=== PATIENT | female | born 1950 | race Caucasian/White ===

== ENCOUNTER 2018-06-29 16:02 | Inpatient (IN) ==
[2018-06-29] MEDS ORDERED: Ampicillin/Sulbactam 3,000 MG in 0.9 % Sodium Chloride Mini Bag 100 ML IVPB ONE (16:13)
[2018-06-29] MEDS ORDERED: *HR* FentaNYL (PF) 100 MCG/2 ML VIAL IVP ONE (16:18)
--- NOTE | 2018-06-29 16:26 | Emergency Department Note ---
Disposition Clinical Impression: Cat bite of hand Qualifiers: Encounter type: initial encounter Laterality: right Qualified Code(s): S61.451A - Open bite of right hand, initial encounter; W55.01XA - Bitten by cat , initial encounter Cellulitis Qualifiers: Site of cellulitis: extremity Site of cellulitis of extremity: upper extremity Laterality: right Qualified Code(s): L03.113 - Cellulitis of right upper limb Disposition: Admitted As Inpatient Condition: Fair Time of Disposition: 16:28 Animal Bite HPI - General Chief Complaint: ED Extremity Injury, Upper Stated Complaint: Left hand cat scratch Time Seen by Provider: 06/29/18 16:09 Source: patient, family Mode of arrival: ambulatory Limitations: no limitations Nursing Notes Reviewed: Yes Vital Signs Reviewed: Yes - History of Present Illness HPI Narrative: The patient sent back from the orthopedic clinic with request for admission Pt Subjective Complaint: animal bite Onset (ago): hour(s) Animal: cat Description of Animal: household pet Mechanism: bite Bilateral: hand Pain Description: constant Context: unprovoked Associated symptoms: Reports: erythema - Related Data Patient Tetanus UTD: Yes Home Medications Medication Instructions Recorded Confirmed Citalopram [CeleXA] 20 mg PO DAILY 03/06/16 10/01/16 Quetiapine Fumarate [Seroquel] 600 mg PO QPM 03/06/16 10/01/16 Ropinirole HCl [Requip] 2 mg PO DAILY 03/06/16 10/01/16 diazePAM [Valium] 10 mg PO TID PRN 03/06/16 10/01/16 Ergocalciferol (VITAMIN D2) 50,000 unit PO QWEEK 10/01/16 10/01/16 [Vitamin D2] Lisinopril [Zestril] 10 mg PO DAILY 10/01/16 10/01/16 [place]-3/Dha/Epa/Fish Oil [Fish Oil 1,000 mg PO DAILY 10/01/16 10/01/16 1,000 mg Softgel] Venlafaxine [Effexor] 37.5 mg PO DAILY 10/01/16 10/01/16 Vitamin E Acid Succinate [Vitamin 200 unit PO DAILY 10/01/16 10/01/16 E] Previous Rx's Medication Instructions Recorded Clindamycin [Cleocin] 150 mg PO Q6HR #8 capsule 10/01/16 OxyCODONE Immed Rel [Roxicodone 5 5 mg PO Q6HR PRN #30 tablet 10/01/16 MG] Loratadine/Pseudophed (12 HR) 1 each PO BID #20 tab.er.12h 10/28/16 [Claritin D (12HR)] Cyclobenzaprine [Flexeril] 10 mg PO TID #15 tablet 06/20/18 methylPREDNISolone [Medrol] 4 mg PO TAPER #21 tablet 06/20/18 Amoxicillin/Clavulanate [Augmentin] 875 mg PO BID #20 tablet 06/29/18 Allergies Allergy/AdvReac Type Severity Reaction Status Date / Time No Known Allergies Allergy Verified 06/20/18 14:25 All systems ED: reviewed and negative except as stated. Constitutional: Reports: as per HPI Eyes: Reports: as per HPI ENT ED: Reports: as per HPI Cardiovascular: Reports: as per HPI Respiratory: Reports: as per HPI Gastrointestinal: Reports: as per HPI Genitourinary: Reports: as per HPI Musculoskeletal: Reports: other (Left hand pain) Integumentary: Reports: other (cat bite, puncture wound) Neurological: Reports: as per HPI Psychiatric: Reports: as per HPI Endocrine: Reports: as per HPI Hematological/Lymphatic: Reports: as per HPI Allergic/Immunologic: Reports: as per HPI Past Medical History - Past Medical History Source: patient Medical history: Reports: GERD, hypertension, other Surgical history: Reports: cholecystectomy, hysterectomy Psychiatric history: Reports: anxiety, bipolar, depression 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 - Social History Smoking Status: Never smoker Smokeless Tobacco Status: No Alcohol use: Reports: none Drug use: Reports: none Physical Exam - General Limitations: no limitations General appearance: anxious - Head Head exam: atraumatic - Eye Eye exam: Present: normal appearance - ENT ENT exam: normal exam - Neck Neck exam: Present: normal inspection - Chest Chest inspection: Present: normal inspection, symmetric chest wall rise - Respiratory Respiratory exam: Present: normal lung sounds bilaterally - Cardiovascular Cardiovascular exam: Present: regular rate, normal rhythm, normal heart sounds - Expanded Upper Extremity Exam Shoulder exam: Present: normal inspection Arm exam: Present: normal inspection Elbow exam: Present: normal inspection Forearm/Wrist exam: Present: erythema (Erythema tracking along the volar aspect of the left forearm) Hand exam: Present: tenderness, swelling, erythema, other (Multiple puncture wounds to the dorsum of the left hand as well as the hyperthenar eminence of the left hand. Puncture wound to the flexor aspect of the right fourth digit) - Neurological Exam Neurological exam: Present: alert, oriented X3, CN II-XII intact - Psychiatric Psychiatric exam: Present: anxious - Skin Skin exam: Present: warm, dry Course Vital Signs Temperature 98.3 F 06/29/18 16:05 Pulse Rate 84 06/29/18 16:05 Respiratory Rate 16 06/29/18 16:05 Blood Pressure 142/88 06/29/18 16:05 O2 Sat by Pulse Oximetry 98 06/29/18 16:05 Temperature 98.3 F 06/29/18 16:05 Pulse Rate 84 06/29/18 16:05 Respiratory Rate 16 06/29/18 16:05 Blood Pressure 142/88 06/29/18 16:05 O2 Sat by Pulse Oximetry 98 06/29/18 16:05 Oxygen Delivery Oxygen Delivery Room Air Animal Bite - Lab Data Lab results reviewed: Yes I reviewed the patient's lab results. - Radiology Data Radiology results reviewed: Yes I reviewed the patient's radiology results.
[2018-06-29 16:55] LABS: Basophils % 0.5 %; Eosinophils # 0.3 K/mcL (0.0-0.6); Eosinophils % 3.9 %; Hematocrit 39.5 % (35.3-44.9); Hemoglobin 12.9 g/dL (11.5-15.4); Immature Granulocytes % 0.3 % (0-4); Lymphocytes # 1.3 K/mcL (0.6-4.6); Lymphocytes % 16.8 %; Mean Corpuscular HGB Conc 32.7 g/dL (31.6-35.5); Mean Corpuscular Hemoglobin 30.3 pg (28.0-33.3); Mean Corpuscular Volume 92.7 fL (83.0-100.0); Mean Platelet Volume 9.3 fL (9.4-12.4); Monocytes # 0.7 K/mcL (0.0-1.3); Monocytes % 9.4 %; Neutrophils # 5.4 K/mcL (1.6-8.9); Platelet Count 286 K/mcL (140-400); Red Blood Count 4.26 M/mcL (3.82-4.97); Red Cell Distribution Width 13.2 % (11.5-14.5); Segmented Neutrophils % 69.1 %
[2018-06-29 17:09] LABS: Alanine Aminotransferase 40 Units/L (7-52); Albumin 4.5 g/dL (3.5-5.7); Albumin/Globulin Ratio 1.4 (1.1-2.2); Alkaline Phosphatase 129 Units/L (34-104); Aspartate Amino Transferase 49 Units/L (13-39); BUN/Creatinine Ratio 15 (6-26); Bilirubin,Total 0.5 mg/dL (0.3-1.0); Blood Urea Nitrogen 14 mg/dL (8-23); Calcium 9.7 mg/dL (8.6-10.3); Carbon Dioxide 29 mEq/L (23-29); Chloride 101 mEq/L (98-107); Globulin 3.2 g/dL (2.4-3.5); Glucose 104 mg/dL (70-105); Osmolality,Calculated 285 (280-300); Potassium 4.1 mEq/L (3.5-5.1); Sodium 137 mEq/L (136-145); Total Protein 7.7 g/dL (6.4-8.9); eGFR For Non-African Americans 59 (> 60)
[2018-06-29] MEDS ORDERED: Naloxone 0.4 MG/ML INJ IVP PRN (17:17)
[2018-06-29] MEDS ORDERED: Acetaminophen 325 MG TABLET PO PRN (17:17)
[2018-06-29] MEDS ORDERED: *HR* OxyCODONE Immed Rel 5 MG TABLET PO PRN (17:17)
--- NOTE | 2018-06-29 17:38 | Internal Med History&Physical ---
Date of Encounter: 06/29/18 Time of Encounter: 17:20 Internal Medicine - H&P: HPI Chief complaint: cat bite, left hand pain and swelling Admitted From: Home History of present illness: Ms. Montelongo is a 67 year old female with past medical history of hypertension, GERD, anxiety, presented to the ED after a cat bite to both hands last night. It was a domestic, vaccinated cat of her own which bit her when she was trying to get him off the couch. Shortly after by, she developed intense pain and swelling especially on the left-hand associated with streaks of red spots noted on her forearm. Endorses subjective fever/chills but no nausea/vomiting. Denies any chest pain, short of breath, or other cardiopulmonary symptoms. No GI / symptoms. She was initially seen in the ED, received tetanus shot, and was sent to the orthopedic clinic with a prescription of Augmentin but was asked to return to the ED by Dr. Horner. In the ED, she was afebrile and hemodynamically stable. CBC and BMP were unremarkable. Hand XR showed no acute osseous abnormality but suggested a possibility of small retained metallic foreign body projecting over the soft tissue near the fifth metacarpal head. She was started on IV Unasyn and admitted for further management. Past Med Surg Social Fam HX - Past Medical History Attestation: Yes The following information was validated with the patient. Medical history: GERD, hypertension, other Additional medical history: diverticulitis, Alcoholism, depression, anxiety, gallstones, venous insufficiency, varicose veins, insomnia Psychiatric history: anxiety, bipolar, depression - Past Surgical History Surgical History: cholecystectomy, hysterectomy Additional surgical history: phlebectomy, Right wrist open reduction internal fixation of distal radius - Social History Smoking Status: Never smoker Smokeless Tobacco Status: No Alcohol use: none Drug use: none Internal Medicine - H&P: Meds [facility]-3/Dha/Epa/Fish Oil [Fish Oil 1,000 mg Softgel] 1,000 mg PO DAILY 10/01/16 [History] Vitamin E Acid Succinate [Vitamin E] 200 unit PO DAILY 10/01/16 [History] Ergocalciferol (VITAMIN D2) [Vitamin D2] 2,000 unit PO DAILY 06/29/18 [History] Lisinopril-HCTZ 20-12.5 [Prinzide 20-12.5] 1 tab PO DAILY 06/29/18 [History] Omeprazole [PriLOSEC] 20 mg PO DAILY 06/29/18 [History] Quetiapine Fumarate [Quetiapine Fumarate] 400 mg PO DAILY 06/29/18 [History] Simvastatin [Zocor] 40 mg PO DAILY 06/29/18 [History] Venlafaxine HCl [Venlafaxine HCl ER] 150 mg PO DAILY 06/29/18 [History] clonazePAM [Clonazepam] 1 mg PO TID 06/29/18 [History] 3 Allergy/AdvReac Type Severity Reaction Status Date / Time No Known Allergies Allergy Verified 06/20/18 14:25 All Systems PM: A 10-system review of systems was performed and is negative for pertinent findings except as documented above in the HPI. - Constitutional Vitals: Temp Pulse Resp BP Pulse Ox 98.3 F 84 16 142/88 98 06/29/18 16:05 06/29/18 16:05 06/29/18 16:05 06/29/18 16:05 06/29/18 16:05 Exam: General: Alert and oriented, not in acute distress. HEENT:EOM, pupils equal, round and reactive. Cardiovascular:Normal S1 & S2, No JVD. Pulse regular. Lungs: clear to auscultation, no wheezes/rales Abdomen:Soft, non-tender, no rigidity. Extremities: Dorsum of left hand with 4 puncture wounds associated with surround edema and erythema. Tender to touch. Also has streaks of redness along the medial aspect of L forearm. Also has a puncture wound over palmar aspect of R 4th digit associated with localized swelling. None of the wounds show drainage. Still able to make a fist. Neurological:Normal cognition and motor skills. Non-focal Skin:Normal color, no rash, no lesions. Pulses:Carotid and radial pulses normal +2. Rest of the physical exam is non contributory Internal Med - H&P Results - Labs CBC & Chem 7: 06/29/18 16:13 06/29/18 16:13 Labs: Short CBC 06/29/18 Range/Units 16:13 WBC 7.7 (4.3-11.1) K/mcL Hgb 12.9 (11.5-15.4) g/dL Hct 39.5 (35.3-44.9) % Plt Count 286 (140-400) K/mcL Neutrophils # 5.4 (1.6-8.9) K/mcL BMP 06/29/18 16:13 Sodium 137 Potassium 4.1 Chloride 101 Carbon Dioxide 29 BUN 14 Creatinine 0.94 Glucose 104 Calcium 9.7 Liver Function 06/29/18 Range/Units 16:13 Total Bilirubin 0.5 (0.3-1.0) mg/dL AST 49 H (13-39) Units/L ALT 40 (7-52) Units/L Alkaline Phosphatase 129 H (34-104) Units/L Albumin 4.5 (3.5-5.7) g/dL - Impressions ITS Impressions Hand X-Ray 06/29/18 16:13 IMPRESSION: 1. No acute osseous abnormality. 2. Small retained metallic foreign body projects over the soft tissues near the 5th metacarpal head. D/ / 06/29/2018 16:38:27 Emmanuel Anderson MD / [email or web address] Interpreting Provider: Emmanuel Anderson MD - Assessment and plan (1) Cat bite of hand Current Visit: Yes Status: Acute Assessment and plan: Concern for cellulitis + possible tenosynovitis and lymphangitis XR finding as above analgesics wound care blood cultures x 2 sets start IV unasyn will monitor her overnight on IV abx, may require MRI Qualifiers: Encounter type: initial encounter Laterality: left Qualified Code(s): S61.452A - Open bite of left hand, initial encounter; W55.01XA - Bitten by cat, initial encounter (2) Cellulitis Current Visit: Yes Status: Acute Assessment and plan: As above Qualifiers: Site of cellulitis: extremity Site of cellulitis of extremity: upper extremity Laterality: left Qualified Code(s): L03.114 - Cellulitis of left upper limb (3) HTN (hypertension) Current Visit: Yes Status: Acute Assessment and plan: Resume home meds Qualifiers: Hypertension type: essential hypertension Qualified Code(s): I10 - Essential (primary) hypertension (4) Anxiety Current Visit: Yes Status: Acute Assessment and plan: Continue Klonopin at home dose (5) DVT prophylaxis Current Visit: Yes Status: Acute Assessment and plan: SCD - Time Spent With Patient Total time spent is greater than 50% in coordination of care (as documented) at patient's floor/unit and/or counseling patient:
--- NOTE | 2018-06-29 19:39 | Orthopedic Consult Note ---
Date of Encounter: 06/29/18 Time of Encounter: 17:30 Assessment and Plan (1) Cat bite of hand Current Visit: Yes Status: Acute I did discuss the diagnosis in detail with the patient. She does have generalized swelling and erythema related to cellulitis from the bite of a cat. This did occur about 12 hours ago. I do not appreciate any fluctuance but the edema is impressive and I agree with admission and IV antibiotics, particularly Unasyn and close observation overnight. I will see the patient again tomorrow and given her clinical scenario, particularly if she worsens, we will consider ordering an MRI of the left hand to evaluate for drainable abscess. Until then I recommend elevation, anti-inflammatories is able per the hospitalist, ice, and IV antibiotics. Qualifiers: Encounter type: initial encounter Laterality: left Qualified Code(s): S61.452A - Open bite of left hand, initial encounter; W55.01XA - Bitten by cat, initial encounter History of Present Illness HPI: Ms. Montelongo is a 67 year old female who sustained an injury from a cat bite yesterday to her left hand. This was her own vaccinated domestic cat who she was trying to help after got caught in a chair. The patient indicates that the cat bit and clawed at her left hand. Over the night and through the morning she developed pain and swelling and presented to the emergency department earlier today where she was felt to have cellulitis and was discharged on Augmentin and followed up with Dr. Horner in the office who referred her back to the emergency department due to concerns for lymphangitis, patient age, and general frailty. The patient was subsequently admitted to the hospitalist and was placed on Unasyn. I did evaluate the patient in consultation in the emergency department where she was complaining of isolated pain to the left hand region mainly along the dorsum but also ulnar proximal aspect of the hand which is sharp and achy in nature and worse with movements. She denies numbness , tingling, or any other associated signs or symptoms or modifying factors. She currently denies any feelings of illness, but does have some nausea. Past Med Surg Social Fam HX - Past Medical History Medical history: GERD, hypertension, other Additional medical history: diverticulitis, Alcoholism, gallstones, venous insufficiency, varicose veins, insomnia Psychiatric history: anxiety, bipolar, depression - Past Surgical History Surgical History: cholecystectomy, hysterectomy Additional surgical history: phlebectomy, Right wrist open reduction internal fixation of distal radius - Social History Smoking Status: Never smoker Smokeless Tobacco Status: No Alcohol use: none Drug use: none Medications and Allergies [place]-3/Dha/Epa/Fish Oil [Fish Oil 1,000 mg Softgel] 1,000 mg PO DAILY 10/01/16 [History] Vitamin E Acid Succinate [Vitamin E] 200 unit PO DAILY 10/01/16 [History] Ergocalciferol (VITAMIN D2) [Vitamin D2] 2,000 unit PO DAILY 06/29/18 [History] Lisinopril-HCTZ 20-12.5 [Prinzide 20-12.5] 1 tab PO DAILY 06/29/18 [History] Omeprazole [PriLOSEC] 20 mg PO DAILY 06/29/18 [History] Quetiapine Fumarate [Quetiapine Fumarate] 400 mg PO DAILY 06/29/18 [History] Simvastatin [Zocor] 40 mg PO DAILY 06/29/18 [History] Venlafaxine HCl [Venlafaxine HCl ER] 150 mg PO DAILY 06/29/18 [History] clonazePAM [Clonazepam] 1 mg PO TID 06/29/18 [History] 3 Allergy/AdvReac Type Severity Reaction Status Date / Time No Known Allergies Allergy Verified 06/20/18 14:25 All Systems Reviewed: Constitutional and musculoskeletal systems were reviewed and are negative unless otherwise stated in history of present illness. Physical Exam - Constitutional Vitals: Temp Pulse Resp BP Pulse Ox 98.3 F 84 16 142/88 98 06/29/18 19:04 06/29/18 19:04 06/29/18 19:04 06/29/18 19:04 06/29/18 19:04 CONSTITUTIONAL -Vitals reviewed -The patient is well developed, well nourished, well groomed PSYCHIATRIC -Fully alert and oriented -Pleasant mood LEFT UPPER EXTREMITY Mild generalized swelling to the hand with edema, particularly along the ulnar proximal aspect of the hand with small scattered puncture casillas from teeth, the largest of which is at the proximal ulnar aspect of the hyperthenar eminence with mild associated erythema and lymphangitis with streaking going up to the medial elbow area. Diffuse tenderness along the ulnar aspect of the hand and over the hyperthenar eminence. No pain with passive motion of the digits and wrist. She can grossly flex and extend the digits was some limitation due to pain and swelling. No pain with passive motion of the shoulder or the elbow. The fingertips are all grossly sensate and well-perfused, and the radial artery pulse is 2+. Diagnostic Imaging: I did personally review and interpret x-rays of the left hand which show mild soft tissue swelling without any bony changes. Small retained metallic fragment as described in the radiologist's report, unrelated. Results - Labs Result Diagrams: 06/29/18 16:13 06/29/18 16:13 Labs: Abnormal lab results MPV 9.3 fL (9.4-12.4) L 06/29/18 16:13 Est GFR (Non-Af Amer) 59 (> 60) L 06/29/18 16:13 AST 49 Units/L (13-39) H 06/29/18 16:13 Alkaline Phosphatase 129 Units/L (34-104) H 06/29/18 16:13 All other labs normal. Consult Discharge Plan - Plan Referrals: Marito Mueller MD [Primary Care Provider] -
[2018-06-29] MEDS: clonazePAM 1 MG TABLET PO SCH (21:25)
[2018-06-30] MEDS: Ampicillin/Sulbactam 3,000 MG in 0.9 % Sodium Chloride Mini Bag 100 ML IVPB SCH ×4 (00:20→17:21)
[2018-06-30] MEDS: *HR* HYDROcodone/Acet 5/325 mg TABLET PO PRN ×2 (00:20→06:34)
[2018-06-30 05:59] LABS: Basophils % 0.5 %; Eosinophils # 0.6 K/mcL (0.0-0.6); Eosinophils % 10.3 %; Hematocrit 35.7 % (35.3-44.9); Hemoglobin 11.5 g/dL (11.5-15.4); Immature Granulocytes % 0.3 % (0-4); Lymphocytes # 1.5 K/mcL (0.6-4.6); Lymphocytes % 24.9 %; Mean Corpuscular HGB Conc 32.2 g/dL (31.6-35.5); Mean Corpuscular Volume 93.2 fL (83.0-100.0); Mean Platelet Volume 9.1 fL (9.4-12.4); Monocytes # 0.8 K/mcL (0.0-1.3); Monocytes % 12.3 %; Neutrophils # 3.2 K/mcL (1.6-8.9); Platelet Count 247 K/mcL (140-400); Red Blood Count 3.83 M/mcL (3.82-4.97); Red Cell Distribution Width 13.2 % (11.5-14.5); Segmented Neutrophils % 51.7 %
[2018-06-30 06:24] LABS: BUN/Creatinine Ratio 15 (6-26); Blood Urea Nitrogen 16 mg/dL (8-23); Carbon Dioxide 27 mEq/L (23-29); Chloride 101 mEq/L (98-107); Glucose 123 mg/dL (70-105); Osmolality,Calculated 285 (280-300); Potassium 3.4 mEq/L (3.5-5.1); Sodium 136 mEq/L (136-145); eGFR For Non-African Americans 50 (> 60)
[2018-06-30] MEDS ORDERED: 0.9 % Sodium Chloride w KCl 40 MEQ/1,000 ML MLS IVC SCH (07:30)
[2018-06-30] MEDS ORDERED: Gadolinium Contrast Agent (WT Based) IV PRN (07:37)
--- NOTE | 2018-06-30 07:41 | Orthopedics Progress Note ---
Date of Encounter: 06/30/18 Time of Encounter: 07:39 - Assessment and Plan (1) Cat bite of hand Current Visit: Yes Status: Acute Qualifiers: Encounter type: initial encounter Laterality: left Qualified Code(s): S61.452A - Open bite of left hand, initial encounter; W55.01XA - Bitten by cat, initial encounter Subjective Interval history: S: Resting comfortably in bed She was able to get sleep last night Persistent pain to the left hand, particularly the dorsum and hyperthenar eminence radiating proximally O: Afebrile on the vital signs are stable Persistent swelling and redness to the dorsum of the hand and hyperthenar eminence Significant tenderness to palpation in these areas She is able to grossly flex and extend the digits with limitation due to pain The fingertips are all grossly sensate and well-perfused, and the radial artery pulse is 2+. A: Cellulitis of the left hand after being bit by a cat P: My recommendation is to continue IV antibiotics per the primary team I did order an ESR and CRP I ordered an MRI with contrast to evaluate for underlying abscess I recommend ice, elevation, and anti-inflammatories if able to be tolerated, either Toradol or ibuprofen Objective Vital signs: Vital Signs Temp Pulse Resp BP Pulse Ox 06/30/18 03:30 98.3 F 90 16 103/64 94 06/29/18 21:15 98.7 F 94 17 161/93 96 06/29/18 19:34 86 15 120/89 97 06/29/18 19:04 98.3 F 84 16 142/88 98 Intake and Output 06/29/18 06/29/18 06/30/18 15:59 23:59 07:59 Intake Total 0 / 100 550 / 550 Output Total 0 / 0 Balance 0 / 100 550 / 550 Intake: IV Fluids 100 / 100 Unasyn 3,000 MG In 0.9 % Sodium 100 / 100 Chloride (Mini-Bag +) 100 ML @ 200 mls/hr IVPB Q6HR SRINIVAS Rx#: [id number] Oral 0 / 0 450 / 450 Output: Urine 0 / 0 Other: Meal sandwich Percent of Meal Consumed 100% # Voids 1 Weight 73.936 kg 74 kg Patient Weight 06/30/18 23:59 Weight 74 kg - Labs CBC & BMP: 06/30/18 05:27 06/30/18 05:27 Labs: Abnormal lab results MPV 9.1 fL (9.4-12.4) L 06/30/18 05:27 Potassium 3.4 mEq/L (3.5-5.1) L 06/30/18 05:27 Est GFR (Non-Af Amer) 50 (> 60) L 06/30/18 05:27 Glucose 123 mg/dL (70-105) H 06/30/18 05:27 AST 49 Units/L (13-39) H 06/29/18 16:13 Alkaline Phosphatase 129 Units/L (34-104) H 06/29/18 16:13 Consult Discharge Plan - Plan Referrals: Marito Mueller MD [Primary Care Provider] -
[2018-06-30] MEDS: clonazePAM 1 MG TABLET PO SCH ×3 (08:02→20:57)
[2018-06-30] MEDS: Cholecalciferol (D-3) 1,000 UNIT TABLET PO SCH (08:02)
[2018-06-30] MEDS: Lisinopril-HCTZ 20-12.5mg TABLET PO SCH (08:02)
[2018-06-30] MEDS: Venlafaxine XR (24 HR) 150 MG CAP.ER.24H PO SCH (08:02)
[2018-06-30] MEDS ORDERED: QUETIAPINE FUMARATE 400 MG PO SCH (09:00)
[2018-06-30 10:45] LABS: C-Reactive Protein 56 mg/L (Less than 10)
--- NOTE | 2018-06-30 11:41 | Internal Med Progress Note ---
Hospitalist Progress Note - Encounter Date of Encounter: 06/30/18 Time of Encounter: 09:20 - Subjective Interval History: No acute events overnight. Left hand swelling and pain is about the same as yesterday but the redness along the left forearm has decreased. No fever/ chills or nausea/vomiting. - Exam Vitals: Temp Pulse Resp BP Pulse Ox 97.8 F 74 15 90/52 92 06/30/18 07:41 06/30/18 07:41 06/30/18 07:41 06/30/18 07:41 06/30/18 08:14 Exam: General: Alert and oriented, not in acute distress. Cardiovascular:Normal S1 & S2, No JVD. Pulse regular. Lungs: clear to auscultation, no wheezes/rales Abdomen:Soft, non-tender, no rigidity. Extremities: Dorsum of left hand with 4 puncture wounds associated with surrounding edema and erythema which appears stable. Tender and warm to touch. Streaks of redness along the medial aspect of L forearm has decreased Puncture wound over palmar aspect of R 4th digit associated with localized swelling. No drainage from any of the wounds Pulses:Carotid and radial pulses normal +2. - Assessment and Plan (1) Cat bite of hand Current Visit: Yes Status: Acute Assessment and Plan: Concern for cellulitis + possible tenosynovitis/lymphangitis ESR, CRP elevated analgesics wound care follow up on blood cultures D2 IV unasyn appreciate ortho evaluation, for MRI today (2) Cellulitis Current Visit: Yes Status: Acute Assessment and Plan: As above (3) HTN (hypertension) Current Visit: Yes Status: Acute Assessment and Plan: Resume home meds (4) Anxiety Current Visit: Yes Status: Acute Assessment and Plan: Continue Klonopin at home dose (5) DVT prophylaxis Current Visit: Yes Status: Acute Assessment and Plan: SCD - Time Spent with Patient Total time spent is greater than 50% in coordination of care (as documented) at patient's floor/unit and/or counseling patient: Plan of Care Discussed with: patient Internal Medicine: Result - Labs CBC & Chem 7: 06/30/18 05:27 06/30/18 05:27 Labs: Short CBC 06/30/18 Range/Units 05:27 WBC 6.2 (4.3-11.1) K/mcL Hgb 11.5 (11.5-15.4) g/dL Hct 35.7 (35.3-44.9) % Plt Count 247 (140-400) K/mcL Neutrophils # 3.2 (1.6-8.9) K/mcL BMP 06/30/18 05:27 Sodium 136 Potassium 3.4 L Chloride 101 Carbon Dioxide 27 BUN 16 Creatinine 1.10 Glucose 123 H Calcium 9.0 Consult Discharge Plan - Plan Referrals: Marito Mueller MD [Primary Care Provider] - (1) Cat bite of hand Qualifiers: Encounter type: initial encounter Laterality: left Qualified Code(s): S61.452A - Open bite of left hand, initial encounter; W55.01XA - Bitten by cat, initial encounter (2) Cellulitis Qualifiers: Site of cellulitis: extremity Site of cellulitis of extremity: upper extremity Laterality: left Qualified Code(s): L03.114 - Cellulitis of left upper limb (3) HTN (hypertension) Qualifiers: Hypertension type: essential hypertension Qualified Code(s): I10 - Essential (primary) hypertension
[2018-06-30] MEDS: Ketorolac 15 MG/ML VIAL IVP PRN ×2 (12:34→18:17)
--- NOTE | 2018-06-30 17:45 | Orthopedics Progress Note ---
Date of Encounter: 06/30/18 Time of Encounter: 17:43 - Assessment and Plan (1) Cat bite of hand Current Visit: Yes Status: Acute Qualifiers: Encounter type: initial encounter Laterality: left Qualified Code(s): S61.452A - Open bite of left hand, initial encounter; W55.01XA - Bitten by cat, initial encounter Subjective Interval history: S: Resting comfortably in bed Pain improving to the left hand. O: Afebrile on the vital signs are stable Improved redness to the dorsum of the hand and hyperthenar eminence Edema less intense in the left hand Moderate tenderness to palpation in these areas She is able to grossly flex and extend the digits with limitation due to pain The fingertips are all grossly sensate and well-perfused, and the radial artery pulse is 2+. MRI negative for drainable abscess A: Cellulitis of the left hand after being bit by a cat P: My recommendation is to continue IV antibiotics per the primary team I recommend ice, elevation, and anti-inflammatories if able to be tolerated, either Toradol or ibuprofen Objective Vital signs: Vital Signs Temp Pulse Resp BP Pulse Ox 06/30/18 12:32 98.2 F 87 15 168/104 98 06/30/18 08:14 92 06/30/18 07:41 97.8 F 74 15 90/52 92 06/30/18 03:30 98.3 F 90 16 103/64 94 06/29/18 21:15 98.7 F 94 17 161/93 96 06/29/18 19:34 86 15 120/89 97 06/29/18 19:04 98.3 F 84 16 142/88 98 Intake and Output 06/30/18 06/30/18 06/30/18 07:59 15:59 23:59 Intake Total 650 / 650 580 / 580 Balance 650 / 650 580 / 580 Intake: IV Fluids 200 / 200 100 / 100 Unasyn 3,000 MG In 0.9 % Sodium 200 / 200 100 / 100 Chloride (Mini-Bag +) 100 ML @ 200 mls/hr IVPB Q6HR [facility] Rx#: [id number] Oral 450 / 450 480 / 480 Other: Meal sandwich Lunch Percent of Meal Consumed 100% 75% # Voids 1 Weight 74 kg Patient Weight 06/30/18 23:59 Weight 74 kg - Labs CBC & BMP: 06/30/18 05:27 06/30/18 05:27 Labs: Abnormal lab results MPV 9.1 fL (9.4-12.4) L 06/30/18 05:27 ESR 37 mm/hr (0-15) H 06/30/18 05:27 Potassium 3.4 mEq/L (3.5-5.1) L 06/30/18 05:27 Est GFR (Non-Af Amer) 50 (> 60) L 06/30/18 05:27 Glucose 123 mg/dL (70-105) H 06/30/18 05:27 AST 49 Units/L (13-39) H 06/29/18 16:13 Alkaline Phosphatase 129 Units/L (34-104) H 06/29/18 16:13 C-Reactive Protein 56 mg/L (Less than 10) H 06/30/18 05:27 Consult Discharge Plan - Plan Referrals: Marito Mueller MD [Primary Care Provider] -
[2018-06-30] MEDS: OXYCODONE Oral CONC 10 MG/0.5 ML ORAL.SYG SL PRN (21:09)
[2018-07-01] MEDS: Ampicillin/Sulbactam 3,000 MG in 0.9 % Sodium Chloride Mini Bag 100 ML IVPB SCH ×4 (00:26→17:22)
[2018-07-01 04:14] LABS: Basophils % 0.4 %; Eosinophils # 0.6 K/mcL (0.0-0.6); Eosinophils % 7.2 %; Hematocrit 37.5 % (35.3-44.9); Hemoglobin 11.6 g/dL (11.5-15.4); Immature Granulocytes % 0.4 % (0-4); Lymphocytes # 1.2 K/mcL (0.6-4.6); Mean Corpuscular HGB Conc 30.9 g/dL (31.6-35.5); Mean Corpuscular Hemoglobin 29.7 pg (28.0-33.3); Mean Corpuscular Volume 96.2 fL (83.0-100.0); Mean Platelet Volume 9.1 fL (9.4-12.4); Monocytes # 0.7 K/mcL (0.0-1.3); Monocytes % 8.3 %; Platelet Count 243 K/mcL (140-400); Red Cell Distribution Width 13.2 % (11.5-14.5); Segmented Neutrophils % 69.7 %
[2018-07-01 04:37] LABS: Calcium 8.9 mg/dL (8.6-10.3); Potassium 4.1 mEq/L (3.5-5.1)
--- NOTE | 2018-07-01 07:44 | Orthopedics Progress Note ---
Date of Encounter: 07/01/18 Time of Encounter: 07:41 - Assessment and Plan (1) Cat bite of hand Current Visit: Yes Status: Acute Qualifiers: Encounter type: initial encounter Laterality: left Qualified Code(s): S61.452A - Open bite of left hand, initial encounter; W55.01XA - Bitten by cat, initial encounter Subjective Interval history: S: Resting comfortably in bed Pain continues to improve to the left hand. O: Afebrile on the vital signs are stable Redness almost completely resolved to the dorsum of the hand and hyperthenar eminence Edema improved to the left hand Mild overall swelling Small area over the hypothenar eminence which expresses slight drainage which can be expressed Moderate tenderness to palpation in these areas She is able to grossly flex and extend the digits with limitation due to pain The fingertips are all grossly sensate and well-perfused, and the radial artery pulse is 2+. A: Improving cellulitis of the left hand after being bit by a cat P: My recommendation is to continue IV antibiotics per the primary team at least another 24 hours I recommend ice, elevation, and anti-inflammatories if able to be tolerated, either Toradol or ibuprofen We will continue to follow clinically with you Objective Vital signs: Vital Signs Temp Pulse Resp BP Pulse Ox 07/01/18 06:26 99.7 F H 104 16 104/63 92 07/01/18 03:00 99.2 F 98 16 106/65 90 06/30/18 19:09 98.4 F 100 16 115/71 94 06/30/18 12:32 98.2 F 87 15 168/104 98 06/30/18 08:14 92 Intake and Output 06/30/18 06/30/18 07/01/18 15:59 23:59 07:59 Intake Total 580 / 580 340 / 340 340 / 340 Output Total 0 / 0 Balance 580 / 580 340 / 340 340 / 340 Intake: IV Fluids 100 / 100 100 / 100 100 / 100 Unasyn 3,000 MG In 0.9 % Sodium 100 / 100 100 / 100 100 / 100 Chloride (Mini-Bag +) 100 ML @ 200 mls/hr IVPB Q6HR [facility] Rx#: [id number] Oral 480 / 480 240 / 240 240 / 240 Output: Urine 0 / 0 Other: Meal Lunch Dinner Percent of Meal Consumed 75% 80% # Voids 1 # Bowel Movements 0 - Labs CBC & BMP: 07/01/18 03:46 07/01/18 03:46 Labs: Abnormal lab results MCHC 30.9 g/dL (31.6-35.5) L 07/01/18 03:46 MPV 9.1 fL (9.4-12.4) L 07/01/18 03:46 ESR 37 mm/hr (0-15) H 06/30/18 05:27 Chloride 108 mEq/L (98-107) H 07/01/18 03:46 BUN 25 mg/dL (8-23) H 07/01/18 03:46 Est GFR ( Amer) 59 (> 60) L 07/01/18 03:46 Est GFR (Non-Af Amer) 49 (> 60) L 07/01/18 03:46 Glucose 115 mg/dL (70-105) H 07/01/18 03:46 AST 49 Units/L (13-39) H 06/29/18 16:13 Alkaline Phosphatase 129 Units/L (34-104) H 06/29/18 16:13 C-Reactive Protein 56 mg/L (Less than 10) H 06/30/18 05:27 Consult Discharge Plan - Plan Referrals: Marito Mueller MD [Primary Care Provider] -
[2018-07-01] MEDS: Lisinopril-HCTZ 20-12.5mg TABLET PO SCH (08:29)
[2018-07-01] MEDS: Cholecalciferol (D-3) 1,000 UNIT TABLET PO SCH (08:29)
[2018-07-01] MEDS: Venlafaxine XR (24 HR) 150 MG CAP.ER.24H PO SCH (08:29)
[2018-07-01] MEDS: Ketorolac 15 MG/ML VIAL IVP PRN (08:29)
[2018-07-01] MEDS: clonazePAM 1 MG TABLET PO SCH ×3 (08:29→20:13)
--- NOTE | 2018-07-01 08:45 | Internal Med Progress Note ---
Hospitalist Progress Note - Encounter Date of Encounter: 07/01/18 Time of Encounter: 08:45 - Exam Vitals: Temp Pulse Resp BP Pulse Ox 99.7 F H 104 16 104/63 92 07/01/18 06:26 07/01/18 06:26 07/01/18 06:26 07/01/18 06:26 07/01/18 06:26 Exam: General: Alert and oriented, not in acute distress. Cardiovascular:Normal S1 & S2, No JVD. Pulse regular. Lungs: clear to auscultation, no wheezes/rales Abdomen:Soft, non-tender, no rigidity. Extremities: Dorsum of left hand with 4 puncture wounds associated with surrounding edema and erythema which appears stable. Tender and warm to touch. Streaks of redness along the medial aspect of L forearm has decreased Puncture wound over palmar aspect of R 4th digit associated with localized swelling. No drainage from any of the wounds Pulses:Carotid and radial pulses normal +2. - Assessment and Plan (1) Cat bite of hand Current Visit: Yes Status: Acute Assessment and Plan: Concern for cellulitis + possible tenosynovitis/lymphangitis ESR, CRP elevated analgesics wound care. follow up on blood cultures Continue IV unasyn appreciate ortho evaluation, MRI showed extensive cellulitis Continue IV antibiotics (2) Cellulitis Current Visit: Yes Status: Acute Assessment and Plan: As above (3) HTN (hypertension) Current Visit: Yes Status: Acute Assessment and Plan: Resume home meds (4) Anxiety Current Visit: Yes Status: Acute Assessment and Plan: Continue Klonopin at home dose (5) DVT prophylaxis Current Visit: Yes Status: Acute Assessment and Plan: SCD (6) Headache Current Visit: Yes Status: Acute Assessment and Plan: Pt notes severe right sided headache likely consistent with migraine. Also endorses fall and head trauma about a month ago Obtain CT head and C spine to r/o any intracranial pathology. Start on fioricet PRN - Time Spent with Patient Total time spent is greater than 50% in coordination of care (as documented) at patient's floor/unit and/or counseling patient: Internal Medicine: Result - Labs CBC & Chem 7: 07/01/18 03:46 07/01/18 03:46 Labs: Short CBC 07/01/18 Range/Units 03:46 WBC 8.6 (4.3-11.1) K/mcL Hgb 11.6 (11.5-15.4) g/dL Hct 37.5 (35.3-44.9) % Plt Count 243 (140-400) K/mcL Neutrophils # 6.0 (1.6-8.9) K/mcL BMP 07/01/18 03:46 Sodium 142 Potassium 4.1 Chloride 108 H Carbon Dioxide 29 BUN 25 H Creatinine 1.12 Glucose 115 H Calcium 8.9 - Impressions Impressions Hand MRI 06/30/18 07:37 IMPRESSION: 1. Extensive soft tissue edema with associated postcontrast enhancement most compatible with cellulitis. No organized drainable fluid collection identified to suggest abscess. No acute fracture identified. 2. No tenosynovitis identified. 3. No acute osseous abnormality. 4. [id number] osteoarthritis. D/ / Michoacano Jimenez MD / Michoacano Jimenez MD Interpreting Provider: Michoacano Jimenez MD Consult Discharge Plan - Plan Referrals: Marito Mueller MD [Primary Care Provider] - (1) Cat bite of hand Qualifiers: Encounter type: initial encounter Laterality: left Qualified Code(s): S61.452A - Open bite of left hand, initial encounter; W55.01XA - Bitten by cat, initial encounter (2) Cellulitis Qualifiers: Site of cellulitis: extremity Site of cellulitis of extremity: upper extremity Laterality: left Qualified Code(s): L03.114 - Cellulitis of left upper limb (3) HTN (hypertension) Qualifiers: Hypertension type: essential hypertension Qualified Code(s): I10 - Essential (primary) hypertension
[2018-07-01] MEDS: Acetaminophen/Butalbital/CaffeineTABLET PO PRN ×2 (11:46→17:57)
[2018-07-01] MEDS: OXYCODONE Oral CONC 10 MG/0.5 ML ORAL.SYG SL PRN (20:17)
[2018-07-02] MEDS: Ampicillin/Sulbactam 3,000 MG in 0.9 % Sodium Chloride Mini Bag 100 ML IVPB SCH ×3 (00:44→09:05)
[2018-07-02] MEDS ORDERED: 0.9 % Sodium Chloride Mini Bag 100 ML ONE (06:26)
--- NOTE | 2018-07-02 08:18 | Internal Med Progress Note ---
Hospitalist Progress Note - Encounter Date of Encounter: 07/02/18 Time of Encounter: 08:15 - Exam Vitals: Temp Pulse Resp BP Pulse Ox 99.3 F 88 16 107/68 91 07/02/18 05:38 07/02/18 05:38 07/02/18 05:38 07/02/18 05:38 07/02/18 05:38 Exam: General: Alert and oriented, not in acute distress. Cardiovascular:Normal S1 & S2, No JVD. Pulse regular. Lungs: clear to auscultation, no wheezes/rales Abdomen:Soft, non-tender, no rigidity. Extremities: Dorsum of left hand with 4 puncture wounds associated with surrounding edema and erythema which appears stable. Tender and warm to touch. Streaks of redness along the medial aspect of L forearm has decreased Puncture wound over palmar aspect of R 4th digit associated with localized swelling. No drainage from any of the wounds Pulses:Carotid and radial pulses normal +2. - Assessment and Plan (1) Cat bite of hand Current Visit: Yes Status: Acute Assessment and Plan: Concern for cellulitis + possible tenosynovitis/lymphangitis ESR, CRP elevated analgesics wound care. follow up on blood cultures appreciate ortho evaluation, MRI showed extensive cellulitis Cellulitis improved. Will transition to po augmentin (2) Cellulitis Current Visit: Yes Status: Acute Assessment and Plan: As above (3) HTN (hypertension) Current Visit: Yes Status: Acute Assessment and Plan: Resume home meds (4) Anxiety Current Visit: Yes Status: Acute Assessment and Plan: Continue Klonopin at home dose (5) Headache Current Visit: Yes Status: Acute Assessment and Plan: Pt notes severe right sided headache likely consistent with migraine. Also endorses fall and head trauma about a month ago CT head and CT spine negative. Start on fioricet PRN (6) Diarrhea Current Visit: Yes Status: Acute Assessment and Plan: r/o c diff due to IV unasyn. Obtain stool studies (7) DVT prophylaxis Current Visit: Yes Status: Acute Assessment and Plan: SCD - Time Spent with Patient Total time spent is greater than 50% in coordination of care (as documented) at patient's floor/unit and/or counseling patient: Internal Medicine: Result - Labs CBC & Chem 7: 07/01/18 03:46 07/01/18 03:46 - Impressions Impressions Cervical Spine CT 07/01/18 10:00 IMPRESSION: No acute abnormality of the cervical spine. Mild multilevel degenerative changes. D/ / Robert Chance MD / Robert Chance MD Interpreting Provider: Robert Chance MD Head CT 07/01/18 10:00 IMPRESSION: 1.No acute intracranial abnormality. D/ / Tommy Batista MD / Tommy Batista MD Interpreting Provider: Tommy Batista MD Consult Discharge Plan - Plan Referrals: Marito Mueller MD [Primary Care Provider] - (1) Cat bite of hand Qualifiers: Encounter type: initial encounter Laterality: left Qualified Code(s): S61.452A - Open bite of left hand, initial encounter; W55.01XA - Bitten by cat, initial encounter (2) Cellulitis Qualifiers: Site of cellulitis: extremity Site of cellulitis of extremity: upper extremity Laterality: left Qualified Code(s): L03.114 - Cellulitis of left upper limb (3) HTN (hypertension) Qualifiers: Hypertension type: essential hypertension Qualified Code(s): I10 - Essential (primary) hypertension (6) Diarrhea Qualifiers: Diarrhea type: infectious Qualified Code(s): A09 - Infectious gastroenteritis and colitis, unspecified
[2018-07-02] MEDS ORDERED: Ampicillin/Sulbactam 3,000 MG in 0.9 % Sodium Chloride Mini Bag 100 ML IVPB SCH (09:00)
[2018-07-02] MEDS: clonazePAM 1 MG TABLET PO SCH ×3 (09:05→20:39)
[2018-07-02] MEDS: Lisinopril-HCTZ 20-12.5mg TABLET PO SCH (09:05)
[2018-07-02] MEDS: Venlafaxine XR (24 HR) 150 MG CAP.ER.24H PO SCH (09:05)
[2018-07-02] MEDS: Cholecalciferol (D-3) 1,000 UNIT TABLET PO SCH (09:05)
[2018-07-02] MEDS: Acetaminophen/Butalbital/CaffeineTABLET PO PRN ×3 (09:12→20:39)
--- NOTE | 2018-07-02 12:22 | Orthopedics Progress Note ---
Date of Encounter: 07/02/18 Time of Encounter: 12:21 Subjective Principal diagnosis: Cat bite left hand Interval history: Patient doing well without complaints. Afebrile vital signs stable. Left hand with minimal erythema. She is able to flex and extend all digits. She has brisk capillary refill. Sensation is intact. Impression: Stable status post cat bite. Plan: Continue to elevate left upper extremity. Can transition to oral antibiotics. Discharge planning. Objective Vital signs: Vital Signs Temp Pulse Resp BP Pulse Ox 07/02/18 10:36 98.3 F 80 16 107/65 90 07/02/18 05:38 99.3 F 88 16 107/68 91 07/01/18 18:50 99.6 F 97 15 132/75 93 07/01/18 15:37 99.2 F 95 17 123/70 94 Intake and Output 07/01/18 07/02/18 07/02/18 23:59 07:59 15:59 Intake Total 580 / 580 0 / 0 360 / 360 Output Total 700 / 700 0 / 0 Balance 580 / 580 -700 / -700 360 / 360 Intake: IV Fluids 100 / 100 Unasyn 3,000 MG In 0.9 % Sodium 100 / 100 Chloride (Mini-Bag +) 100 ML @ 200 mls/hr IVPB Q6HR [facility] Rx#: [id number] Oral 480 / 480 0 / 0 360 / 360 Output: Urine 700 / 700 0 / 0 Other: Meal Dinner Breakfast Percent of Meal Consumed 10% 5% Stool Size Large Stool Consistency formed Stool Color Brown # Bowel Movements 1 Weight 74 kg Patient Weight 07/02/18 23:59 Weight 74 kg - Labs CBC & BMP: 07/01/18 03:46 07/01/18 03:46 Labs: Abnormal lab results MCHC 30.9 g/dL (31.6-35.5) L 07/01/18 03:46 MPV 9.1 fL (9.4-12.4) L 07/01/18 03:46 ESR 37 mm/hr (0-15) H 06/30/18 05:27 Chloride 108 mEq/L (98-107) H 07/01/18 03:46 BUN 25 mg/dL (8-23) H 07/01/18 03:46 Est GFR ( Amer) 59 (> 60) L 07/01/18 03:46 Est GFR (Non-Af Amer) 49 (> 60) L 07/01/18 03:46 Glucose 115 mg/dL (70-105) H 07/01/18 03:46 AST 49 Units/L (13-39) H 06/29/18 16:13 Alkaline Phosphatase 129 Units/L (34-104) H 06/29/18 16:13 C-Reactive Protein 56 mg/L (Less than 10) H 06/30/18 05:27 Consult Discharge Plan - Plan Referrals: Marito Mueller MD [Primary Care Provider] -
[2018-07-03 05:16] LABS: Basophils % 0.6 %; Eosinophils # 0.6 K/mcL (0.0-0.6); Hematocrit 35.6 % (35.3-44.9); Hemoglobin 11.3 g/dL (11.5-15.4); Immature Granulocytes % 0.2 % (0-4); Lymphocytes # 1.3 K/mcL (0.6-4.6); Lymphocytes % 26.4 %; Mean Corpuscular HGB Conc 31.7 g/dL (31.6-35.5); Mean Corpuscular Hemoglobin 29.6 pg (28.0-33.3); Mean Corpuscular Volume 93.2 fL (83.0-100.0); Mean Platelet Volume 9.2 fL (9.4-12.4); Monocytes # 0.7 K/mcL (0.0-1.3); Monocytes % 14.4 %; Neutrophils # 2.4 K/mcL (1.6-8.9); Platelet Count 248 K/mcL (140-400); Red Blood Count 3.82 M/mcL (3.82-4.97); Segmented Neutrophils % 46.4 %
[2018-07-03 05:40] LABS: BUN/Creatinine Ratio 24 (6-26); Blood Urea Nitrogen 18 mg/dL (8-23); Calcium 9.4 mg/dL (8.6-10.3); Carbon Dioxide 29 mEq/L (23-29); Chloride 107 mEq/L (98-107); Glucose 104 mg/dL (70-105); Osmolality,Calculated 294 (280-300); Potassium 3.8 mEq/L (3.5-5.1); Sodium 141 mEq/L (136-145); eGFR For Non-African Americans > 60 (> 60)
[2018-07-03] MEDS: Acetaminophen/Butalbital/CaffeineTABLET PO PRN ×2 (06:20→12:25)
--- NOTE | 2018-07-03 08:23 | Discharge Summary ---
Orders not resulted at time of discharge: Pending orders 07/02/18 14:46 C diff [C.difficile Toxin PCR (>=2yo)] [MOLMIC] Routine 07/04/18 04:00 CBC [Complete Blood Count] [HEME] AM 0400 07/05/18 04:00 CBC [Complete Blood Count] [HEME] AM 0400 07/06/18 04:00 CBC [Complete Blood Count] [HEME] AM 0400 07/07/18 04:00 CBC [Complete Blood Count] [HEME] AM 04007/08/18 04:00 CBC [Complete Blood Count] [HEME] AM 040 Date of Encounter: 07/03/18 Time of Encounter: 08:20 - Discharge Diagnosis (1) Cat bite of hand Priority: Primary Status: Acute Assessment and Plan: 67 year old female with past medical history of hypertension, GERD, anxiety, presented to the ED after a cat bite to both hands last night. It was a domestic , vaccinated cat of her own which bit her when she was trying to get him off the couch. Shortly after by, she developed intense pain and swelling especially on the left-hand associated with streaks of red spots noted on her forearm. Endorses subjective fever/chills but no nausea/vomiting. Denies any chest pain, short of breath, or other cardiopulmonary symptoms. No GI/ symptoms. She was initially seen in the ED, received tetanus shot, and was sent to the orthopedic clinic with a prescription of Augmentin but was asked to return to the ED by Dr. Horner. She had impressive edema of the right hand and was assessed with acute cellulitis s/p cat bite. She was started on IV unasyn and orthopedic surgery was consulted. She had an MRI done showing extensive right hand cellulitis. No abscess noted. She improved with IV antibiotics with gradual improvement in her swelling. She was discharged home to complete a course of po augmentin She was also dishcarged on fioricet PRN for intermittent migraines Qualifiers: Encounter type: initial encounter Laterality: left Qualified Code(s): S61.452A - Open bite of left hand, initial encounter; W55.01XA - Bitten by cat, initial encounter (2) Cellulitis Priority: Primary Status: Resolved Assessment and Plan: As above Qualifiers: Site of cellulitis: extremity Site of cellulitis of extremity: upper extremity Laterality: left Qualified Code(s): L03.114 - Cellulitis of left upper limb (3) HTN (hypertension) Priority: Secondary Status: Acute Assessment and Plan: Resume home meds Qualifiers: Hypertension type: essential hypertension Qualified Code(s): I10 - Essential (primary) hypertension (4) Anxiety Priority: Secondary Status: Acute (5) Headache Priority: Primary Status: Acute Assessment and Plan: Pt notes severe right sided headache likely consistent with migraine. Also endorses fall and head trauma about a month ago CT head and CT spine negative. Start on fioricet PRN Qualifiers: Qualified Code(s): R51 - Headache (6) Diarrhea Priority: Secondary Status: Acute Assessment and Plan: Diarrhea resolved Qualifiers: Diarrhea type: infectious Qualified Code(s): A09 - Infectious gastroenteritis and colitis, unspecified (7) DVT prophylaxis Priority: Secondary Status: Acute Hospital course: Ms. Montelongo is a 67 year old female - Time Spent with Patient Total time spent providing and/or coordinating discharge services: - Discharge Medications Prescriptions: Acetaminophen/Butalbital/Caffe [Fioricet] 1 each PO Q6HR PRN 30 Days #60 tablet PRN Reason: Headache Amoxicillin/Clavulanate [Augmentin] 875 mg PO BIDWM 6 Days #12 tablet Home Medications: [place]-3/Dha/Epa/Fish Oil [Fish Oil 1,000 mg Softgel] 1,000 mg PO DAILY 10/01/16 [History] Vitamin E Acid Succinate [Vitamin E] 200 unit PO DAILY 10/01/16 [History] Ergocalciferol (VITAMIN D2) [Vitamin D2] 2,000 unit PO DAILY 06/29/18 [History] Lisinopril-HCTZ 20-12.5 [Prinzide 20-12.5] 1 tab PO DAILY 06/29/18 [History] Omeprazole [PriLOSEC] 20 mg PO DAILY 06/29/18 [History] Quetiapine Fumarate 400 mg PO DAILY 06/29/18 [History] Simvastatin [Zocor] 40 mg PO DAILY 06/29/18 [History] Venlafaxine HCl [Venlafaxine HCl ER] 150 mg PO DAILY 06/29/18 [History] clonazePAM [Clonazepam] 1 mg PO TID 06/29/18 [History] Acetaminophen/Butalbital/Caffe [Fioricet] 1 each PO Q6HR PRN 30 Days #60 tablet 07/03/18 [Rx] Amoxicillin/Clavulanate [Augmentin] 875 mg PO BIDWM 6 Days #12 tablet 07/03/18 [ Rx] Allergies/Adverse Reactions: 3 Allergy/AdvReac Type Severity Reaction Status Date / Time No Known Allergies Allergy Verified 06/20/18 14:25 Date of admission: 06/29/18 18:48 Primary care physician: Marito Mueller MD - Constitutional Vitals: Temp Pulse Resp BP Pulse Ox 98.0 F 62 16 105/63 94 07/03/18 07:33 07/03/18 07:33 07/03/18 07:33 07/03/18 07:33 07/03/18 07:33 Exam: General: Alert and oriented, not in acute distress. Cardiovascular:Normal S1 & S2, No JVD. Pulse regular. Lungs: clear to auscultation, no wheezes/rales Abdomen:Soft, non-tender, no rigidity. Extremities: Dorsum of left hand with 4 puncture wounds associated with surrounding edema and erythema which appears stable. Tender and warm to touch. Streaks of redness along the medial aspect of L forearm has decreased Puncture wound over palmar aspect of R 4th digit associated with localized swelling. No drainage from any of the wounds Pulses:Carotid and radial pulses normal +2. - Patient Status Disposition: Home, Self-Care Condition: Good - Discharge Instructions Follow Up With: Marito Mueller MD [Primary Care Provider] -
[2018-07-03] MEDS: Venlafaxine XR (24 HR) 150 MG CAP.ER.24H PO SCH (08:58)
[2018-07-03] MEDS: clonazePAM 1 MG TABLET PO SCH (08:58)
[2018-07-03] MEDS: Cholecalciferol (D-3) 1,000 UNIT TABLET PO SCH (08:58)
[2018-07-03] MEDS: Lisinopril-HCTZ 20-12.5mg TABLET PO SCH (08:58)
--- NOTE | 2018-07-03 09:52 | Orthopedics Progress Note ---
Date of Encounter: 07/03/18 Time of Encounter: 09:50 - Assessment and Plan (1) Cat bite of hand Current Visit: Yes Status: Acute Cellulitis has resolved from the cat bite infection with IV antibiotics Recommend discharge on by mouth Augmentin Follow-up with Dr. Sampson in 1 week Qualifiers: Encounter type: initial encounter Laterality: left Qualified Code(s): S61.452A - Open bite of left hand, initial encounter; W55.01XA - Bitten by cat, initial encounter (2) Cellulitis Current Visit: Yes Status: Resolved Qualifiers: Site of cellulitis: extremity Site of cellulitis of extremity: upper extremity Laterality: left Qualified Code(s): L03.114 - Cellulitis of left upper limb Subjective Principal diagnosis: Cat bite left hand Interval history: Patient states she is doing well and hand feels a lot better Left upper extremity: There is no streaking of erythema up the arm. No swelling. Cat-bite puncture wounds on hand healed and not draining slightly raised and erythematous. Nontender no fluctuance. No warmth a hand. Full range of motion of elbow wrist and digits. Normal sensation, good capillary refill of digits Objective Vital signs: Vital Signs Temp Pulse Resp BP Pulse Ox 07/03/18 07:33 98.0 F 62 16 105/63 94 07/03/18 04:21 98.0 F 71 16 99/63 90 07/02/18 19:25 98.3 F 80 15 117/71 94 07/02/18 14:28 97.8 F 83 16 108/69 92 07/02/18 10:36 98.3 F 80 16 107/65 90 Intake and Output 07/02/18 07/03/18 07/03/18 23:59 07:59 15:59 Intake Total 360 / 360 480 / 480 Output Total 0 / 0 500 / 500 Balance 360 / 360 -20 / -20 Intake: Oral 360 / 360 480 / 480 Output: Urine 0 / 0 500 / 500 Other: Meal Dinner Percent of Meal Consumed 100% # Voids 1 Weight 75.6 kg Patient Weight 07/03/18 23:59 Weight 75.6 kg - Labs CBC & BMP: 07/03/18 04:08 07/03/18 04:08 Labs: Abnormal lab results Hgb 11.3 g/dL (11.5-15.4) L 07/03/18 04:08 MPV 9.2 fL (9.4-12.4) L 07/03/18 04:08 ESR 37 mm/hr (0-15) H 06/30/18 05:27 AST 49 Units/L (13-39) H 06/29/18 16:13 Alkaline Phosphatase 129 Units/L (34-104) H 06/29/18 16:13 C-Reactive Protein 56 mg/L (Less than 10) H 06/30/18 05:27 Consult Discharge Plan - Plan Referrals: Marito Mueller MD [Primary Care Provider] - Prescriptions: Acetaminophen/Butalbital/Caffe [Fioricet] 1 each PO Q6HR PRN 30 Days #60 tablet PRN Reason: Headache Amoxicillin/Clavulanate [Augmentin] 875 mg PO BIDWM 6 Days #12 tablet
[2018-07-03 11:15] VITALS: BP 107/67
== END 2018-07-03 13:15 | disposition home or self-care (01) | DRG 603 ==
LOC: EMEROOARM 16:02 → 3ANU 18:48 → SUATTDRO 18:48 → 3ANU 20:24
PROVIDERS: ADMIT Internal Medicine; ATTEND Internal Medicine